=== PATIENT | female | born 1950 | race Caucasian/White ===

== ENCOUNTER → 2018-03-26 | Outpatient (CLI) | payer MEDICARE ==
[~2018-03-26] MED LIST: GABA300 PO; METF500 PO
== END ==
LOC: LAB 17:41 → LAB SHORT 17:41
DX: R39.14 Feeling of incomplete bladder emptying (principal); R10.9 Unspecified abdominal pain
CPT/HCPCS: 87077; 87086; 87186

== ENCOUNTER → 2019-04-23 | Outpatient (CLI) | payer MEDICARE | END | disposition home or self-care (01) | LOC: LAB SRC 15:51 → LAB SHORT 15:51 | DX: N30.00 Acute cystitis without hematuria (principal) | CPT/HCPCS: 87077; 87086; 87186 ==

== ENCOUNTER 2022-06-08 01:47 | Inpatient (IN) | payer MEDICARE ==
[~2022-06-08] VITALS: Ht 147.3 cm; Wt 75.8 kg
[2022-06-08 02:03] LABS: BASOPHILS ABSOLUTE AUTO 0.08 K/mm3 (0.00-0.23); BASOPHILS PERCENT AUTO 1 % (0-2); EOSINOPHILS ABSOLUTE AUTO 0.23 K/mm3 (0.00-0.68); EOSINOPHILS PERCENT AUTO 2 % (0-6); Hematocrit 33.2 % (33.0-51.0); Hemoglobin 11.2 g/dL (11.5-16.0); IMMATURE GRAN ABSOLUTE AUTO 0.05 K/mm3 (0.00-0.10); IMMATURE GRAN PERCENT AUTO 1 % (0-1); LYMPHOCYTES ABSOLUTE AUTO 1.82 K/mm3 (0.84-5.20); LYMPHOCYTES PERCENT AUTO 17 % (21-46); MONOCYTES ABSOLUTE AUTO 0.57 K/mm3 (0.16-1.47); MONOCYTES PERCENT AUTO 5 % (4-13); Mean Corpuscular HGB 30.2 pg (26.0-34.0); Mean Corpuscular HGB Conc 33.7 g/dL (31.5-36.5); Mean Corpuscular Volume 90 fL (80-100); Mean Platelet Volume 9.2 fL (9.1-12.4); NEUTROPHILS ABSOLUTE AUTO 7.92 K/mm3 (1.96-9.15); NEUTROPHILS PERCENT AUTO 74 % (41-73); Platelet Count 326 K/mm3 (150-400); RDW Coefficient Variation 13.2 % (11.7-14.2); RDW Standard Deviation 43.2 fL (35.1-46.3); Red Blood Cell Count 3.71 M/mm3 (3.80-5.20); White Blood Cell Count 10.67 K/mm3 (4.00-11.30)
[2022-06-08 02:20] LABS: Albumin, Blood 3.6 g/dL (3.4-5.0); Albumin/Globulin Ratio 1.1 (0.8-1.8); Bilirubin, Total 0.3 mg/dL (0.1-1.0); Bun/Creatinine Ratio 9.1 (12.0-20.0); Calcium, Blood 8.9 mg/dL (8.5-10.1); Creatinine, Blood 1.1 mg/dL (0.40-1.00); Globulin, Blood 3.4 g/dL (2.2-4.0); Potassium, Blood 4.1 mmol/L (3.5-5.5)
[2022-06-08 05:18] LABS: Hematocrit 33.9 % (33.0-51.0); Hemoglobin 11.7 g/dL (11.5-16.0); Mean Corpuscular HGB 30.6 pg (26.0-34.0); Mean Corpuscular HGB Conc 34.5 g/dL (31.5-36.5); Mean Corpuscular Volume 89 fL (80-100); Platelet Count 320 K/mm3 (150-400); RDW Coefficient Variation 13.2 % (11.7-14.2); RDW Standard Deviation 42.7 fL (35.1-46.3); Red Blood Cell Count 3.82 M/mm3 (3.80-5.20); White Blood Cell Count 10.43 K/mm3 (4.00-11.30)
[2022-06-08 05:56] LABS: Bun/Creatinine Ratio 9.4 (12.0-20.0); Creatinine, Blood 1.06 mg/dL (0.40-1.00); Potassium, Blood 4.6 mmol/L (3.5-5.5)
[2022-06-08] MEDS ORDERED: DILT60 PO (06:38)
[2022-06-08] MEDS ORDERED: IRBE150 PO (06:39)
[2022-06-08] MEDS ORDERED: ALDACTONE25 MG PO (06:40)
[2022-06-08 07:08] LABS: Source, Urine Foley catheter
[2022-06-08 07:12] LABS: Bilirubin, Urine Neg (Neg); Blood, Urine 1+ (Neg); Glucose Qualitative, Urine Neg (Neg); Ketones, Urine Neg (Neg); Leukocyte Esterase, Urine 2+ (Neg); Nitrite, Urine Neg (Neg); Protein, Urine Neg (Neg); Urobilinogen, Urine NORM (Normal)
[2022-06-08 07:24] LABS: Appearance, Urine Clear (Clear); Color, Urine Pale Yellow (P-Yellow)
[2022-06-08 07:29] LABS: Bacteria Few /hpf; Red Blood Cells, Urine 0-2 /hpf (0-2); Squamous Epithelial Cells Not Seen /hpf (Few)
--- NOTE | 2022-06-08 11:05 | NUR ---
Assumed care of pt at 0700. Report recevied from Lashonda ORTEGA. Pt A&O x 4. Answers questions. Follows commands. Verbalizes needs. Pleasant and coopertive with care. Extremely hard of hearing. Pt unable to understand this RN despite speaking close to pt's hear and attempting communication with multiple volume levels and tonalities. Pt typically wears hearing aid to right ear. Pt states that battery . This RN replaced battery in hearing aid, could hear that device was working, however pt is still unable to hear this RN. Pt asked this RN to pull down mask as she reads lips. Attempted communication in this manner, however patient still is unable to hear this RN. Pt has excellent eyesight, however, and is easily able to read what this RN writes. This has become primary means of communication. 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 Rhythm strip sent to Dr Thakkar. No new orders received. Despite HB, rate is 65-95. BP stable. Left femoral artery sheath in place from angiogram. This RN removed sheath when PTT allowed. Manual pressure held until hemostasis achieved. Pt tolerated removal well. Site dressed with tegaderm CHG. Color, sensation, pulses, capillary refill equal BLE.
--- NOTE | 2022-06-08 14:44 | NUR ---
Call placed to Dr Thakkar to notify discuss patient's home medication regimen. Provider to reorder pt's home meds, however holding off on cardizem as pt was in 2nd degree type I HB.
--- NOTE | 2022-06-08 19:14 | NUR ---
SUMMARY Pt PCU status. Pt has not had any more chest pain. Pt has been switching between SR and 2nd degree type 1 HB. Asymptomatic. Continue to trend troponins. Pt able to stand and use bedside commode. Color, sensation, pulses, capillary refill equal BLE. Sheath removal site free of drainage or hematoma. Valerio catheter remains in place.
--- NOTE | 2022-06-09 01:16 | NUR ---
TRANSFERRED PT TO PCU 17 VIA BED WITH PERSONAL BELONGINGS AT THIS TIME.
--- NOTE | 2022-06-09 06:26 | NUR ---
NOC SHIFT SUMMARY PT ARRIVED TO UNIT FROM ICU @0110. PT SLID OVER TO BED WITH ASSISTANCE, DENIES CP OR DISCOMFORT. VS OBTAINED AND REMAINED WNL OVERNIGHT. SR/PACS ON TELEMETRY. L GROIN SITE CDI. NO ACUTE EVENTS OVERNIGHT. WILL PASS ON TO DAY RN.
[2022-06-09 07:38] LABS: Hematocrit 34.6 % (33.0-51.0); Hemoglobin 11.9 g/dL (11.5-16.0); Mean Corpuscular HGB 30.6 pg (26.0-34.0); Mean Corpuscular HGB Conc 34.4 g/dL (31.5-36.5); Mean Corpuscular Volume 89 fL (80-100); Platelet Count 331 K/mm3 (150-400); RDW Coefficient Variation 13.2 % (11.7-14.2); Red Blood Cell Count 3.89 M/mm3 (3.80-5.20); White Blood Cell Count 8.12 K/mm3 (4.00-11.30)
[2022-06-09 07:44] LABS: Calcium, Blood 8.9 mg/dL (8.5-10.1); Creatinine, Blood 1.17 mg/dL (0.40-1.00); Potassium, Blood 3.7 mmol/L (3.5-5.5)
[2022-06-09] MEDS ORDERED: AMLO5 PO (08:34)
[2022-06-09] MEDS ORDERED: NITR.4SL SL (08:35)
[2022-06-09] MEDS ORDERED: ASPI81CH PO (08:35)
[2022-06-09] MEDS ORDERED: FURO40 PO (08:35)
[2022-06-09] MEDS ORDERED: TRAM50 PO (09:37)
[2022-06-09] MEDS ORDERED: NITR100CA PO (09:37)
--- NOTE | 2022-06-09 12:55 | NUR ---
DISCHARGE NOTE NO ACUTE EVENTS THIS SHIFT, VSS. NO HEMATOMA OR BLEEDING AT GROIN SITE, DRESSING IN PLACE. PT ABLE TO AMBULATE INDEPENDENTLY IN ROOM WITH STABLE GAIT. PT AGREEABLE TO DISCHARGE. DISCHARGE INFORMATION REGARDING FOLLOW UP PLANS, MEDICATION INFORMATION, POST-ANGIO GROIN SITE CARE AND REASONS TO RETURN TO THE HOSPITAL PROVIDED. HARD COPY RX FOR TRAMADOL PROVIDED TO PATIENT. QUESTIONS ANSWERED TO SATISFACTION. PT'S SON PROVIDED RIDE HOME IN PERSONAL VEHICLE.
--- NOTE | 2022-06-09 13:00 | NUR ---
HARD COPY SCRIPT FOR FOLLOW UP LAB DRAW IN 1 WEEK PROVIDED TO PATIENT.
== END 2022-06-09 12:53 | disposition home or self-care (01) | DRG 282 ==
LOC: ER 01:47 → ICUW 02:25 → ICUE 03:50 → PCU 06-09 01:08
PROVIDERS: Emergency Medicine; ADMIT Internal Medicine Interventional Cardiology
PROC: B2111ZZ Fluoroscopy of Multiple Coronary Arteries using Low Osmolar Contrast (ICD-10-PCS; principal; 2022-06-08)
DX: I21.29 ST elevation (STEMI) myocardial infarction involving other sites (principal); E11.42 Type 2 diabetes mellitus with diabetic polyneuropathy; E78.5 Hyperlipidemia, unspecified; F32.A Depression, unspecified; J44.9 Chronic obstructive pulmonary disease, unspecified; I35.0 Nonrheumatic aortic (valve) stenosis; I44.1 Atrioventricular block, second degree; Z86.73 Personal history of transient ischemic attack (TIA), and cerebral infarction without residual deficits; Z90.710 Acquired absence of both cervix and uterus; Z88.5 Allergy status to narcotic agent; Z88.8 Allergy status to other drugs, medicaments and biological substances; Z88.6 Allergy status to analgesic agent; Z91.014 Allergy to mammalian meats; Z79.84 Long term (current) use of oral hypoglycemic drugs; Z79.899 Other long term (current) drug therapy; Z90.49 Acquired absence of other specified parts of digestive tract; Z98.890 Other specified postprocedural states
CPT/HCPCS: 36415; 51703; 71045; 71260; 76937; 80048; 80053; 81001; 82947; 84484; 85025; 85027; 85347; 85730; 87077; 87086; 87186; 93005; 93010; 93246; 93306; 93458; 99152; 99153; A9270; C1769; C1887; C1894; J0360; J1200; J1644; J1720; J1940; J2250; J2270; J3010; J7030; J7040; Q9967

== ENCOUNTER 2023-07-09 14:42 | Observation (INO) | payer MEDICARE ==
[~2023-07-09] VITALS: Ht 147.3 cm; Wt 73.0 kg
[~2023-07-09 14:42] MED LIST changes: +ALDACTONE25 MG PO; +AMLO5 PO; +ASPI81CH PO; +DILT60 PO; +FURO40 PO; +IRBE150 PO; +NITR.4SL SL; +NITR100CA PO; +TRAM50 PO
[2023-07-09 15:54] LABS: BASOPHILS ABSOLUTE AUTO 0.05 K/mm3 (0.00-0.23); BASOPHILS PERCENT AUTO 0 % (0-2); EOSINOPHILS ABSOLUTE AUTO 0.06 K/mm3 (0.00-0.68); EOSINOPHILS PERCENT AUTO 0 % (0-6); Hematocrit 34.4 % (33.0-51.0); Hemoglobin 11.8 g/dL (11.5-16.0); IMMATURE GRAN ABSOLUTE AUTO 0.05 K/mm3 (0.00-0.10); IMMATURE GRAN PERCENT AUTO 0 % (0-1); LYMPHOCYTES PERCENT AUTO 10 % (21-46); MONOCYTES ABSOLUTE AUTO 0.75 K/mm3 (0.16-1.47); MONOCYTES PERCENT AUTO 6 % (4-13); Mean Corpuscular HGB 30.3 pg (26.0-34.0); Mean Corpuscular HGB Conc 34.3 g/dL (31.5-36.5); Mean Corpuscular Volume 88 fL (80-100); Mean Platelet Volume 10.2 fL (9.1-12.4); NEUTROPHILS ABSOLUTE AUTO 11.18 K/mm3 (1.96-9.15); NEUTROPHILS PERCENT AUTO 83 % (41-73); Platelet Count 323 K/mm3 (150-400); RDW Coefficient Variation 13.4 % (11.7-14.2); RDW Standard Deviation 43.5 fL (35.1-46.3); Red Blood Cell Count 3.89 M/mm3 (3.80-5.20); White Blood Cell Count 13.49 K/mm3 (4.00-11.30)
[2023-07-09 16:20] LABS: Albumin, Blood 3.8 g/dL (3.4-5.0); Albumin/Globulin Ratio 1.1 (0.8-1.8); Bilirubin, Total 0.5 mg/dL (0.1-1.0); Bun/Creatinine Ratio 11.1 (12.0-20.0); Creatinine, Blood 0.99 mg/dL (0.40-1.00); Globulin, Blood 3.6 g/dL (2.2-4.0); Potassium, Blood 3.9 mmol/L (3.5-5.5); Total Protein, Blood 7.4 g/dL (6.4-8.2)
[2023-07-09 16:26] LABS: Source, Urine Clean Catch
[2023-07-09] MEDS ORDERED: GABA300 PO (16:43)
[2023-07-09] MEDS ORDERED: TORSE20 PO (16:45)
[2023-07-09] MEDS ORDERED: METF500 PO (16:45)
[2023-07-09] MEDS ORDERED: GLIP5 PO (16:45)
[2023-07-09 16:48] LABS: Appearance, Urine Cloudy (Clear); Bilirubin, Urine Neg (Neg); Blood, Urine 4+ (Neg); Color, Urine Yellow (P-Yellow); Glucose Qualitative, Urine Neg (Neg); Ketones, Urine 1+ (Neg); Leukocyte Esterase, Urine 2+ (Neg); Nitrite, Urine Neg (Neg); Protein, Urine 3+ (Neg); Urobilinogen, Urine NORM (Normal)
[2023-07-09 16:56] LABS: Bacteria Many /hpf; Red Blood Cells, Urine 0-2 /hpf (0-2); Squamous Epithelial Cells Rare /hpf (Few)
[2023-07-09 19:28] LABS: International Normalized Ratio 1.14; Prothrombin Time Results 11.9 Sec (9.7-11.5)
[2023-07-09 19:55] VITALS: BP 149/64
[2023-07-09 22:25] LABS: Anti-Xa UFH, PHA Monitoring >1.50 IU/mL
== END 2023-07-10 00:58 | disposition left against medical advice (07) ==
LOC: ER 14:42 → MEDS 14:43
PROVIDERS: Family Medicine; Student in an Organized Health Care Education/Training Program; ADMIT Internal Medicine
DX: R79.89 Other specified abnormal findings of blood chemistry (principal); R07.9 Chest pain, unspecified; N39.0 Urinary tract infection, site not specified; E11.42 Type 2 diabetes mellitus with diabetic polyneuropathy; E78.5 Hyperlipidemia, unspecified; F17.210 Nicotine dependence, cigarettes, uncomplicated; I25.10 Atherosclerotic heart disease of native coronary artery without angina pectoris; Z53.29 Procedure and treatment not carried out because of patient's decision for other reasons; Z66 Do not resuscitate; Z88.8 Allergy status to other drugs, medicaments and biological substances; Z91.041 Radiographic dye allergy status; Z79.899 Other long term (current) drug therapy; Z79.82 Long term (current) use of aspirin; Z79.84 Long term (current) use of oral hypoglycemic drugs; Z86.73 Personal history of transient ischemic attack (TIA), and cerebral infarction without residual deficits; Z86.59 Personal history of other mental and behavioral disorders
CPT/HCPCS: 71046; 74177; 80053; 81001; 83690; 84484; 85025; 85520; 85610; 85730; 87077; 87086; 87186; 93005; 93010; 96361; 96374-59; 96375; 99285-25; A9270; J1200; J1644; J2270; J2405; J2930; J7030; Q9967

== ENCOUNTER → 2024-12-01 | Outpatient (CLI) | payer MEDICARE ==
[~2024-12-01] MED LIST changes: +GLIP5 PO; +TORSE20 PO
[2024-12-01 20:19] LABS: Creatinine Urine 33.1 mg/dL (27.00-270.00); Protein, Urine Quantitative 31.1 mg/dL (0.0-11.9)
== END | disposition home or self-care (01) ==
LOC: LAB 09:35 → LAB SHORT 09:35 → LAB FUT 11-24 14:20
PROVIDERS: Internal Medicine Nephrology
DX: N18.30 Chronic kidney disease, stage 3 unspecified (principal); D63.1 Anemia in chronic kidney disease; N25.81 Secondary hyperparathyroidism of renal origin; E55.9 Vitamin D deficiency, unspecified; E78.00 Pure hypercholesterolemia, unspecified; E29.1 Testicular hypofunction; R76.9 Abnormal immunological finding in serum, unspecified; R94.5 Abnormal results of liver function studies; R94.6 Abnormal results of thyroid function studies; D51.8 Other vitamin B12 deficiency anemias; D52.8 Other folate deficiency anemias; D50.9 Iron deficiency anemia, unspecified
CPT/HCPCS: 81050; 82043; 82570; 84156

== ENCOUNTER 2025-05-30 20:22 | Inpatient (IN) | payer MEDICARE ==
[~2025-05-30] VITALS: Ht 165.1 cm; Wt 64.4 kg
[2025-05-30 20:51] LABS: BASOPHILS ABSOLUTE AUTO 0.02 K/mm3 (0.00-0.23); BASOPHILS PERCENT AUTO 0 % (0-2); EOSINOPHILS ABSOLUTE AUTO 0.00 K/mm3 (0.00-0.68); EOSINOPHILS PERCENT AUTO 0 % (0-6); Hematocrit 34.5 % (33.0-51.0); Hemoglobin 11.7 g/dL (11.5-16.0); IMMATURE GRAN ABSOLUTE AUTO 0.03 K/mm3 (0.00-0.10); IMMATURE GRAN PERCENT AUTO 0 % (0-1); LYMPHOCYTES ABSOLUTE AUTO 0.58 K/mm3 (0.84-5.20); LYMPHOCYTES PERCENT AUTO 6 % (21-46); MONOCYTES ABSOLUTE AUTO 0.52 K/mm3 (0.16-1.47); MONOCYTES PERCENT AUTO 5 % (4-13); Mean Corpuscular HGB Conc 33.9 g/dL (31.5-36.5); Mean Corpuscular Volume 89 fL (80-100); NEUTROPHILS ABSOLUTE AUTO 8.49 K/mm3 (1.96-9.15); NEUTROPHILS PERCENT AUTO 88 % (41-73); NRBC ABSOLUTE 0.00 K/mm3 (0.00-0.02); NRBC Auto 0.0 /100 WBC (0.0-0.2); Platelet Count 375 K/mm3 (150-400); RDW Coefficient Variation 15.6 % (11.7-14.2); RDW Standard Deviation 50.4 fL (35.1-46.3)
[2025-05-30 20:59] LABS: Source, Urine Straight Cath
[2025-05-30 21:10] LABS: Bilirubin, Urine Neg (Neg); Color, Urine Yellow (P-Yellow); Glucose Qualitative, Urine Neg (Neg); Ketones, Urine Neg (Neg); Leukocyte Esterase, Urine Neg (Neg); Protein, Urine 2+ (Neg); Specific Gravity, Urine 1.025 (1.003-1.022); Urobilinogen, Urine NORM (Normal)
[2025-05-30 21:19] LABS: Red Blood Cells, Urine 0-2 /hpf (0-2); White Blood Cells, Urine 0-2 /hpf (0-5)
[2025-05-30 21:34] LABS: Alanine Aminotransfer (ALT/SGP 30.0 U/L (12-78); Albumin, Blood 4.3 g/dL (3.4-5.0); Albumin/Globulin Ratio 1.1 (0.8-1.8); Anion Gap 17.0 mmol/L (3-11); Aspartate Aminotrans (AST/SGOT 19.0 U/L (12-37); Bilirubin, Total 0.4 mg/dL (0.1-1.0); Blood Urea Nitrogen 131.0 mg/dL (8-24); CO2, Blood 8.0 mmol/L (21-32); Calcium, Blood 9.9 mg/dL (8.5-10.1); Chloride, Blood 120.0 mmol/L (98-108); Creatinine, Blood 5.17 mg/dL (0.40-1.00); Globulin, Blood 3.9 g/dL (2.2-4.0); Glucose, Blood 169.0 mg/dL (70-99); Potassium, Blood 5.5 mmol/L (3.5-5.5); Sodium, Blood 139.0 mmol/L (136-145); Total Protein, Blood 8.2 g/dL (6.4-8.2)
[2025-05-30] MEDS ORDERED: NS 1,000 ML IV SCH (23:00)
[2025-05-30] MEDS ORDERED: MetroNIDAZOLE 500MG/NS 100 ml 100 ML IV ONE (23:10)
[2025-05-30] MEDS ORDERED: CefTRIAXone Sodium 1,000 MG in NS 100 ML IV ONE (23:10)
[2025-05-30] MEDS ORDERED: Sodium Bicarb 8.4% Inj 100 MEQ in Sodium Chloride 0.45% 1,000 ML IV SCH (23:30)
[2025-05-31] VITALS (7 sets, daily range): BP systolic 127–160; BP diastolic 57–118
[2025-05-31] MEDS ORDERED: Sodium Bicarb 8.4% 1 MEQ/ML 50 ML Vial IV ONE
[2025-05-31 04:07] LABS: Anion Gap 16.0 mmol/L (3-11); Blood Urea Nitrogen 134.0 mg/dL (8-24); CO2, Blood 11.0 mmol/L (21-32); Calcium, Blood 9.0 mg/dL (8.5-10.1); Chloride, Blood 122.0 mmol/L (98-108); Creatinine, Blood 4.97 mg/dL (0.40-1.00); Glucose, Blood 168.0 mg/dL (70-99); Potassium, Blood 4.8 mmol/L (3.5-5.5); Sodium, Blood 144.0 mmol/L (136-145)
[2025-05-31] MEDS ORDERED: FLU VACC TS2025-26(6MOS UP)/PF 45 MCG/0.5 ML SYRINGE IM ONE (04:35)
[2025-05-31] MEDS ORDERED: NS 1,000 ML BAG IR ONE (05:05)
[2025-05-31] MEDS ORDERED: NS 250 ML IV ONE (05:10)
--- NOTE | 2025-05-31 05:51 | NUR ---
PT ARRIVED FROM ED AT 0120. PT AWAKE BUT ONLY ORIENTED TO SELF, SAYING VERY FEW WORDS. SHE IS ABLE TO FOLLOW COMMANDS. PT STATING "I NEED TO PEE" FIRST BLADDER SCAN HAD 311 AND SECOND SHOWED 400. ORDERED FOR PT TO BE STRAIGHT CATHED. AFTER ATTEMPTING AND BEING UNSUCESSFUL DUE TO PT KICKING AND SCREAMING WE ALLOWED PT A BREAK AND CALLED PROVIDER. ORDERS RECIEVED TO PLACE [place] ON NEXT ATTEMPT DUE TO DIFFICULTY WITH SC. [place] PLACED AND DRAINING WITHOUT DIFFICULTY. PT ON RA AND O2 > 95%. PT SLIGHTLY TACHYCARDIC IN THE LOW 100S BUT ALL OTHER VSS. BED IN LOWEST POSITION AND BED ALARM ON.
[2025-05-31 06:19] LABS: BASOPHILS ABSOLUTE AUTO 0.01 K/mm3 (0.00-0.23); BASOPHILS PERCENT AUTO 0 % (0-2); EOSINOPHILS ABSOLUTE AUTO 0.02 K/mm3 (0.00-0.68); EOSINOPHILS PERCENT AUTO 0 % (0-6); Hematocrit 30.8 % (33.0-51.0); Hemoglobin 10.2 g/dL (11.5-16.0); IMMATURE GRAN ABSOLUTE AUTO 0.03 K/mm3 (0.00-0.10); IMMATURE GRAN PERCENT AUTO 0 % (0-1); LYMPHOCYTES ABSOLUTE AUTO 0.44 K/mm3 (0.84-5.20); LYMPHOCYTES PERCENT AUTO 5 % (21-46); MONOCYTES ABSOLUTE AUTO 0.44 K/mm3 (0.16-1.47); MONOCYTES PERCENT AUTO 5 % (4-13); Mean Corpuscular HGB Conc 33.1 g/dL (31.5-36.5); Mean Corpuscular Volume 91 fL (80-100); NEUTROPHILS ABSOLUTE AUTO 7.99 K/mm3 (1.96-9.15); NEUTROPHILS PERCENT AUTO 90 % (41-73); NRBC ABSOLUTE 0.00 K/mm3 (0.00-0.02); NRBC Auto 0.0 /100 WBC (0.0-0.2); Platelet Count 333 K/mm3 (150-400); RDW Coefficient Variation 15.5 % (11.7-14.2); RDW Standard Deviation 51.3 fL (35.1-46.3)
[2025-05-31 06:37] LABS: Alanine Aminotransfer (ALT/SGP 23.0 U/L (12-78); Albumin, Blood 3.7 g/dL (3.4-5.0); Albumin/Globulin Ratio 1.1 (0.8-1.8); Anion Gap 18.0 mmol/L (3-11); Aspartate Aminotrans (AST/SGOT 20.0 U/L (12-37); Bilirubin, Total 0.3 mg/dL (0.1-1.0); Blood Urea Nitrogen 128.0 mg/dL (8-24); CO2, Blood 9.0 mmol/L (21-32); Calcium, Blood 9.0 mg/dL (8.5-10.1); Chloride, Blood 123.0 mmol/L (98-108); Creatinine, Blood 4.94 mg/dL (0.40-1.00); Globulin, Blood 3.3 g/dL (2.2-4.0); Glucose, Blood 162.0 mg/dL (70-99); Potassium, Blood 4.9 mmol/L (3.5-5.5); Sodium, Blood 145.0 mmol/L (136-145); Total Protein, Blood 7.0 g/dL (6.4-8.2)
[2025-05-31] MEDS ORDERED: IMIP10 PO (08:04)
[2025-05-31] MEDS ORDERED: 1/2 NS 250ml250 ML (08:04)
[2025-05-31] MEDS ORDERED: METF500 PO (08:06)
[2025-05-31] MEDS ORDERED: HydrALAZINE HCl 20 MG / ML 1ML Vial IV PRN (09:20)
[2025-05-31 09:41] LABS: Anion Gap 16.0 mmol/L (3-11); Blood Urea Nitrogen 121.0 mg/dL (8-24); CO2, Blood 12.0 mmol/L (21-32); Calcium, Blood 8.8 mg/dL (8.5-10.1); Chloride, Blood 123.0 mmol/L (98-108); Creatinine, Blood 4.62 mg/dL (0.40-1.00); Glucose, Blood 167.0 mg/dL (70-99); Potassium, Blood 4.5 mmol/L (3.5-5.5); Sodium, Blood 146.0 mmol/L (136-145)
[2025-05-31 09:50] LABS: Thyroid Stimulating Hormone 1.23 uIU/mL (0.360-4.800); Uric Acid, Blood 9.0 mg/dL (2.6-6.0)
[2025-05-31] MEDS ORDERED: Sodium Bicarb 8.4% Inj 100 MEQ in Sodium Chloride 0.45% 1,000 ML IV SCH (10:00)
[2025-05-31] MEDS ORDERED: Insulin Regular 100 UNIT/ML 10ML Vial SC SCH ×2 (12:00→21:00)
[2025-05-31] MEDS ORDERED: Heparin Sodium,Porcine 5,000 UNIT/0.5 ML SDV SC SCH (16:00)
--- NOTE | 2025-05-31 18:09 | NUR ---
SHIFT SUMMARY PT CURRENTLY ALERT, FOLLOWING COMMANDS, MAKING NEEDS KNOWN W/ CALL LIGHT. CAN BE IMPULSIVE, PULLED OUT 2 IVS THIS SHIFT. SP02>90% ON RA. TELEMETRY SHOWS NSR/ST, HR 80'S-110'S. ABLE TO SWALLOW PO PILL W/ VANILLA SUGAR FREE PUDDING. C/O OF COCCYX PAIN, MEPLEX IN PLACE, SEE PICS IN CHART. [place] CATHETER DRAINING YELLOW URINE TO GRAVITY. ATTEMPTED BM ON BED GALVEZ X4, UNSUCCESSFULLY. Q2H REPOSITIONING. SON IN ROOM THIS EVENING. MED REC DONE. BICARB GTT INFUSING PER EMAR. CALL LIGHT IN REACH.
[2025-06-01 03:39] VITALS: BP 158/67
[2025-06-01 03:54] LABS: BASOPHILS ABSOLUTE AUTO 0.04 K/mm3 (0.00-0.23); BASOPHILS PERCENT AUTO 1 % (0-2); EOSINOPHILS ABSOLUTE AUTO 0.08 K/mm3 (0.00-0.68); EOSINOPHILS PERCENT AUTO 1 % (0-6); Hematocrit 26.6 % (33.0-51.0); Hemoglobin 9.5 g/dL (11.5-16.0); IMMATURE GRAN ABSOLUTE AUTO 0.03 K/mm3 (0.00-0.10); IMMATURE GRAN PERCENT AUTO 0 % (0-1); LYMPHOCYTES ABSOLUTE AUTO 0.80 K/mm3 (0.84-5.20); LYMPHOCYTES PERCENT AUTO 10 % (21-46); MONOCYTES ABSOLUTE AUTO 0.58 K/mm3 (0.16-1.47); MONOCYTES PERCENT AUTO 7 % (4-13); Mean Corpuscular HGB Conc 35.7 g/dL (31.5-36.5); NEUTROPHILS ABSOLUTE AUTO 6.50 K/mm3 (1.96-9.15); NEUTROPHILS PERCENT AUTO 81 % (41-73); NRBC ABSOLUTE 0.00 K/mm3 (0.00-0.02); NRBC Auto 0.0 /100 WBC (0.0-0.2); Platelet Count 314 K/mm3 (150-400); RDW Coefficient Variation 15.3 % (11.7-14.2); RDW Standard Deviation 47.2 fL (35.1-46.3)
[2025-06-01 03:56] LABS: Mean Corpuscular Volume 85 fL (80-100)
[2025-06-01 04:17] LABS: Albumin, Blood 3.4 g/dL (3.4-5.0); Anion Gap 14 mmol/L (3-11); Blood Urea Nitrogen 110 mg/dL (8-24); CO2, Blood 16 mmol/L (21-32); Calcium, Blood 8.3 mg/dL (8.5-10.1); Chloride, Blood 116 mmol/L (98-108); Creatinine, Blood 3.66 mg/dL (0.40-1.00); Glucose, Blood 139 mg/dL (70-99); Phosphorus, Blood 4.2 mg/dL (2.5-4.9); Potassium, Blood 3.4 mmol/L (3.5-5.5); Sodium, Blood 143 mmol/L (136-145)
--- NOTE | 2025-06-01 06:09 | NUR ---
NOC SHIFT SUMMARY PT ALERT, ORIENTATED 2-3, HE WILL FOLLOW SOME DIRECTIONS AND MAKE NEEDS KNOWN. SHE IS VERY [place], CAN READ LIPS AT TIMES. SHE DID NOT SLEEP MUCH DURING THE NIGHT, AND CAN BECOME AGGITATED WITH ACTIVTIES SHE DOES NOT WANT TO PERFORM. Q2 REPOSTIONING T/O SHIFT. [place] CARE GIVEN. PT HAD TWO EPISODES OF LARGE LOOSE STOOLS, THAT WERE INCONT. PT LIKES TO EAT ICE CHIPS, AT ONE POINT SHE DID HOWEVER ASPIRATE ON ICE WATER THAT THE MEDICAL ASSEMBLER GAVE HER. SHE DOES FINE WITH JUST WATER, OR JUST ICE CHIPS BUT NOT TOGETHER. TELE IN PLACE SHOWING SR/ST. BP ELAVATED, BUT DENIES CHEST PAIN OR PRESSURE. BED IN LOW. BED ALARM ON FOR SAFETY. CARE CONTINUES. WILL REPORT TO ONCOMING RN.
[2025-06-01 07:22] VITALS: BP 167/76
[2025-06-01] MEDS ORDERED: Potassium Chloride 10 Meq Tablet SA PO ONE (08:00)
[2025-06-01] MEDS ORDERED: Darbepoetin (Pharmacy Consult) SC SCH (10:30)
[2025-06-01] MEDS ORDERED: Sodium Bicarb 8.4% Inj 100 MEQ in Sodium Chloride 0.45% 1,000 ML IV SCH (10:35)
[2025-06-01 12:00] VITALS: BP 154/58
[2025-06-01 15:56] VITALS: BP 141/72
[2025-06-01] MEDS ORDERED: Darbepoetin Alfa in Polysorbat 25 MCG/0.42 ML Syringe SC SCH (17:00)
[2025-06-01 17:41] LABS: Campylobacter Sp Not Detected (NOT DETECT); E. Coli O157 Not Detected (NOT DETECT); Enteroaggregative E. coli-EAEC Not Detected (NOT DETECT); Enteropathogenic E. coli-EPEC Not Detected (NOT DETECT); Enterotoxigenic E. coli-ETEC Not Detected (NOT DETECT); Salmonella Sp Not Detected (NOT DETECT); Shiga Toxin-prod E. coli-STEC Not Detected (NOT DETECT); Shigella/Enteroin E. coli-EIEC Not Detected (NOT DETECT); Vibrio Sp Not Detected (NOT DETECT)
--- NOTE | 2025-06-01 17:43 | NUR ---
SHIFT SUMMARY; ASSUMED CARE AT 0700. A/A/OX3. Q2 TURNS, MEPILEX FOR PREVENTATIVE TO COCCYX CHANGED. BED BATH COMPLETED. 2 EPISODES OF WATERY GREEN DIARRHEA. STOOL SAMPLE SENT. VSS. BICARB INFUSING AT 75ML/HR. [place] IN PLACE DRAINING TO GRAVITY BAG. DRINKING FLUIDS AND EATING ICE CHIPS BUT REFUSES ALL MEAL TRAYS. STATUS CHANGED TO MEDICAL. CODE STATUS CONFIRMED DNR BY DR. BANUELOS. REPORT TO LÓPEZ AND TAKEN TO ROOM 306 VIA BED. MIAN FELDMAN CALLED AND NOTIFIED OF ROOM CHANGE.
[2025-06-01 20:14] VITALS: BP 145/66
[2025-06-01 23:57] VITALS: BP 154/58
[2025-06-02] MEDS ORDERED: Ondansetron HCl 2 MG / ML 2ML Vial IV PRN (00:45)
[2025-06-02 03:55] VITALS: BP 148/81
[2025-06-02 04:19] LABS: Hematocrit 27.8 % (33.0-51.0); Hemoglobin 9.5 g/dL (11.5-16.0)
[2025-06-02 04:45] LABS: Albumin, Blood 3.2 g/dL (3.4-5.0); Anion Gap 15 mmol/L (3-11); Blood Urea Nitrogen 85 mg/dL (8-24); CO2, Blood 20 mmol/L (21-32); Calcium, Blood 8.4 mg/dL (8.5-10.1); Chloride, Blood 112 mmol/L (98-108); Creatinine, Blood 2.93 mg/dL (0.40-1.00); Glucose, Blood 177 mg/dL (70-99); Magnesium, Blood 1.7 mg/dL (1.6-2.4); Phosphorus, Blood 3.9 mg/dL (2.5-4.9); Potassium, Blood 3.1 mmol/L (3.5-5.5); Sodium, Blood 144 mmol/L (136-145)
--- NOTE | 2025-06-02 05:52 | NUR ---
PT HAD 1X OCCURENCE OF DIARRHEA AT THE BEGINNING OF SHIFT AND NONE THEREAFTER. PT COMPLAINING OF NAUSEA, AND PT WAS PRESCRIBED ZOFRAN PRN. NO COMPLAINTS OF NAUSEA AFTER ZOFRAN GIVEN. PT ABLE TO EAT CRACKERS AFTER HAVING POOR ORAL INTAKE.
[2025-06-02 07:57] VITALS: BP 151/79
[2025-06-02 11:38] VITALS: BP 153/60
[2025-06-02 15:40] VITALS: BP 148/63
--- NOTE | 2025-06-02 17:42 | NUR ---
Spiritual Care Visit Pt. is awake and welcomed my visit. pt. is pleasant but does display evidence of VENETIE and some pleasant confusion. Facilitated a family based life review. Pt. verbalized thaat she has strong family support from her brother. Pt. welcomed prayer. Prayed for the Pt. Pt. verbalized gratitude for the spiritual care visit and welcomed this trimming machine operator to return.
--- NOTE | 2025-06-02 19:14 | NUR ---
SHIFT SUMMARY- A&Ox3. PLEASANT AND COOPERATIVE WITH CARE. CALLS APPROPRIATELY AND IS ABLE TO ADVOCATE NEEDS EFFECTIVELY. PATIENT IS [place] AND DOES NOT HAVE HER AIDS. TELE NORMAL 79. BREATHING EVEN AND UNLABORED c RA. CONTINENT OF BOWEL AND BLADDER; LBM 06/02. TOLERATING DIET. IC L ARM. AMBULATES c SBA c FWW. MEDS WHOLE c FLUIDS. BED IN LOWEST POSITION, CALL LIGHT WITHIN REACH, ALL NEEDS MET. REPORT TO ONCOMING NURSE.
[2025-06-02 20:13] VITALS: BP 146/66
[2025-06-03 00:30] VITALS: BP 122/52
[2025-06-03 03:32] VITALS: BP 144/67
--- NOTE | 2025-06-03 05:11 | NUR ---
SHIFT SUMMARY 74 YR F. DNR. NO ACUTE CHANGES THIS SHIFT. 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 A NEW BATTERY WAS PUT IN IT TODAY AND SHE IS HEARING A TAD BIT BETTER. SHE IS PLEASANT AND COOPERATIVE WITH CARE. FAMILY BROUGHT HER SOME FOOD AND SHE ATE PART OF A TACO. SHE STATES THIS IS THE FIRST FOOD SHE HAS EATEN IN AWHILE, SHE HAS ONLY BEEN EATING ICE CHIPS AND DRINKING WATER. THIS NURSE EDUCATED PT ON THE IMPORTANCE OF MAINTAINING A HEALTHY DIET. PER CREDIT VERIFICATION CLERK, PT IS SR @ 75 @ 0558. NO C/O PAIN OR DISCOMFORT THIS SHIFT. PT IS ABLE TO MAKE HER NEEDS KNOWN. BED IS IN LOW POSITION AND CALL LIGHT IN REACH.
[2025-06-03 05:29] LABS: Hematocrit 26.7 % (33.0-51.0); Hemoglobin 9.0 g/dL (11.5-16.0)
[2025-06-03 06:00] LABS: Albumin, Blood 3.2 g/dL (3.4-5.0); Anion Gap 12 mmol/L (3-11); Blood Urea Nitrogen 71 mg/dL (8-24); CO2, Blood 24 mmol/L (21-32); Calcium, Blood 8.4 mg/dL (8.5-10.1); Chloride, Blood 108 mmol/L (98-108); Creatinine, Blood 2.75 mg/dL (0.40-1.00); Glucose, Blood 137 mg/dL (70-99); Magnesium, Blood 1.9 mg/dL (1.6-2.4); Phosphorus, Blood 3.0 mg/dL (2.5-4.9); Potassium, Blood 3.4 mmol/L (3.5-5.5); Sodium, Blood 141 mmol/L (136-145)
[2025-06-03 07:24] VITALS: BP 145/68
[2025-06-03] MEDS ORDERED: Potassium Chloride 10 Meq Tablet SA PO ONE (10:40)
[2025-06-03 11:30] VITALS: BP 141/74
[2025-06-03 15:45] VITALS: BP 158/44
--- NOTE | 2025-06-03 18:44 | NUR ---
SHIFT SUMMARY- A&Ox3. PLEASANT AND COOPERATIVE WITH CARE. CALLS APPROPRIATELY AND IS ABLE TO ADVOCATE NEEDS EFFECTIVELY. PATIENT IS [place] AND DOES NOT HAVE HER AIDS. TELE NORMAL 74. BREATHING EVEN AND UNLABORED c RA. CONTINENT OF BOWEL AND BLADDER; LBM 06/03. TOLERATING DIET, DIET ADVANCED TO NORMAL DIET. PATIENT REPORTS RUQ PAIN, CALL TO DR. BANUELOS WHO REVIEWED CT FROM ADMIT NORMAL. IV L ARM D/CD DUE TO LEAKING. AMBULATES c SBA c FWW. MEDS WHOLE c FLUIDS. BED IN LOWEST POSITION, CALL LIGHT WITHIN REACH, ALL NEEDS MET. REPORT TO ONCOMING NURSE.
[2025-06-03 23:42] VITALS: BP 157/65
[2025-06-04 04:32] VITALS: BP 143/55
[2025-06-04 05:02] LABS: Hematocrit 24.6 % (33.0-51.0); Hemoglobin 8.5 g/dL (11.5-16.0)
[2025-06-04 05:21] LABS: Albumin, Blood 3.0 g/dL (3.4-5.0); Anion Gap 9 mmol/L (3-11); Blood Urea Nitrogen 57 mg/dL (8-24); CO2, Blood 25 mmol/L (21-32); Calcium, Blood 8.0 mg/dL (8.5-10.1); Chloride, Blood 107 mmol/L (98-108); Creatinine, Blood 2.52 mg/dL (0.40-1.00); Glucose, Blood 128 mg/dL (70-99); Magnesium, Blood 1.7 mg/dL (1.6-2.4); Phosphorus, Blood 2.6 mg/dL (2.5-4.9); Potassium, Blood 3.4 mmol/L (3.5-5.5); Sodium, Blood 138 mmol/L (136-145)
--- NOTE | 2025-06-04 05:36 | NUR ---
SHIFT SUMMARY 74 YR F ADMITTED ON 05/30/25. DNR. NO ACUTE CHANGES THIS SHIFT. PT'S IV CAME OUT ON DAY SHIFT AND PT STATED THAT SHE REALLY DID NOT WANT TO GET ANOTHER ONE. HOWEVER, SHE WAS ON TELE AND AN IV IS REQUIRED. SPOKE W/ HOSPITALIST AND WAS ABLE TO DC TELE PT WILL LIKELY DISCHARGE TODAY AND HAS HAD NO ADVERSE TELE EVENTS IN THE LAST FEW DAYS. PT HAS HAD NO C/O PAIN OR DISCOMFORT THIS SHIFT. SHE APPEARS TO HAVE RESTED COMFORTABLY THROUGHOUT THE NIGHT. SHE STATES THAT SHE IS HAPPY TO BE EATING MORE BUT IS STILL FEELING SICK TO HER STOMACH. SHE CALLS APPROPRIATELY FOR ASSISTANCE AND IS ABLE TO MAKE HER NEEDS KNOWN. BED IN LOW POSITION AND CALL LIGHT IN REACH.
[2025-06-04 07:43] VITALS: BP 127/62
--- NOTE | 2025-06-04 08:23 | NUR ---
pt laying in bed awake sitting up for breakfast, a/ox4, eek, pleasant and cooperative with care, follows commands well, denies pain, states she's ready to go home, lungs are clear a bit dim in bases, resp even and unlabored, no cough noted, hrr, murmur noted, no edema noted, ppp+1, cap refill<3 sec, vs stable, afebrile, btx4, abd flat soft nontender, voids without diff, skin c/w/d, maew, cristine, call light in reach.
[2025-06-04] MEDS ORDERED: Simethicone 40 MG/0.6 ML 30ML BTL PO SCH (10:00)
[2025-06-04] MEDS ORDERED: HYDRA25 PO (10:33)
[2025-06-04] MEDS ORDERED: SIME40L PO (10:33)
--- NOTE | 2025-06-04 12:07 | NUR ---
pt has been discharged to home, no iv to remove, went over discharge instructions with her son, because she has such difficulty hearing, he verbalized understanding, new meds have been faxed to her pharmacy, pt left via wheelchair with all her belongings with trim machine adjuster in attendence.
== END 2025-06-04 12:11 | DRG 682 ==
LOC: ER 20:22 → PCU 22:55 → MEDS 22:55 → PCU 05-31 01:20 → MEDS 06-01 17:30 → ENPENDDIS 06-04 09:35 → MEDS 06-04 12:11
PROVIDERS: Internal Medicine; Internal Medicine Nephrology; Student in an Organized Health Care Education/Training Program; ADMIT Internal Medicine
DX: N17.9 Acute kidney failure, unspecified (principal); G93.41 Metabolic encephalopathy; I45.2 Bifascicular block; E87.21 Acute metabolic acidosis; E87.0 Hyperosmolality and hypernatremia; E78.5 Hyperlipidemia, unspecified; F32.A Depression, unspecified; E11.42 Type 2 diabetes mellitus with diabetic polyneuropathy; Z66 Do not resuscitate; I12.9 Hypertensive chronic kidney disease with stage 1 through stage 4 chronic kidney disease, or unspecified chronic kidney disease; D63.1 Anemia in chronic kidney disease; E87.6 Hypokalemia; I25.2 Old myocardial infarction; N18.32 Chronic kidney disease, stage 3b; E11.22 Type 2 diabetes mellitus with diabetic chronic kidney disease; L89.92 Pressure ulcer of unspecified site, stage 2; Z60.2 Problems related to living alone; Z86.73 Personal history of transient ischemic attack (TIA), and cerebral infarction without residual deficits; Z90.89 Acquired absence of other organs; Z90.710 Acquired absence of both cervix and uterus; Z88.8 Allergy status to other drugs, medicaments and biological substances; Z91.041 Radiographic dye allergy status; Z79.899 Other long term (current) drug therapy
CPT/HCPCS: 36415; 51701; 70450; 71045; 74176; 80048; 80053; 80069; 81001; 82550; 82947; 83605; 83690; 83735; 84443; 84550; 85014; 85018; 85025; 87086; 87507; 93005; 93010; 97110; 97116; 97161; 97165; 97530; 97535; 99285-25; A6590; A9270; J0696; J0881; J1644; J1815; J2405; J7050